=== PATIENT | female | born 1985 | race Caucasian/White ===

== ENCOUNTER 2019-06-17 13:12 | Emergency (ER) | payer MEDICAID, SELFPAY ==
[2019-06-17 13:13] VITALS: BP 154/106; PULSE 105; RESP 18; TEMP 36.8; O2SAT 100; BMI 27.1
[2019-06-17] MEDS: 0.9% Normal Saline 1,000 ML 1000 ML IV (13:13)
--- NOTE | 2019-06-17 13:29 | CT_ITS ---
STUDY: CT BRAIN WITHOUT CONTRAST REASON FOR EXAM: Female, 34 years old. Generalized weakness RADIATION DOSAGE (If Supplied By Facility): CTDIvol = ( 44.99 ) mGy, DLP = ( 812.98 ) mGycm TECHNIQUE: Transaxial CT imaging of the brain was performed without administration of intravenous contrast material. Individualized dose optimization techniques were used for this CT. COMPARISON: No relevant priors. FINDINGS: The bobo, medulla, and cerebellum appear to be normal. The ventricles and sulci are normal in size and shape. The basal ganglia appear to be normal. The inner and outer tables of the skull are intact. The frontal, ethmoid, maxillary, and sphenoid sinuses are normal. The mastoid air cells are normal. CT/Brain/Head without Contrast IMPRESSION: Normal unenhanced CT scan of the brain. Electronically Signed: Jhonathan Antony, at 14:48 EDT Tel , Service support ,
--- NOTE | 2019-06-17 13:29 | EKG12_ITS ---
Test Reason : WEAKNESS Blood Pressure : / mmHG Vent. Rate : 092 BPM Atrial Rate : 092 BPM P-R Int : 132 ms QRS Dur : 086 ms QT Int : 380 ms P-R-T Axes : 062 044 045 degrees QTc Int : 469 ms Normal sinus rhythm Possible Left atrial enlargement Nonspecific ST abnormality Abnormal ECG Confirmed by EVIE SANTANA, SARAH ([id number]), research editor SHANTA CHANG ([id number]) on 06/23/2019 9:35:19 AM Referred By: EVELIA Confirmed By:TROY CASE MD
--- NOTE | 2019-06-17 13:40 | NURSING ---
NO OLD EKGS
[2019-06-17 13:49] LABS: Absolute Lymphocyte Count 1.51 X10^3/uL (0.83-4.51); Absolute Neutrophil Count 6.6 X10^3/uL (2.0-7.7); Basophil# 0.02 X10^3/uL; Basophil% 0.2 % (0-1); Eosinophil# 0.05 X10^3/uL; Eosinophils% 0.6 % (0-5); Hematocrit 40.3 % (37-47); Hemoglobin 13.2 g/dL (12.0-15.0); Lymphocyte # 1.51 X10^3/ul (4.0); Lymphocyte % 17.7 % (19-41); Mean Corp Hgb Conc 32.8 g/dL (32-36); Mean Corpuscular Hgb 28.6 pg (27.0-32.0); Mean Corpuscular Volume 87.2 fL (81-99); Mean Platelet Vol. 10.4 fl (6.2-12.0); Monocyte# 0.38 X10^3/uL; Monocyte% 4.4 % (0-10); NRBC Flagged by Analyzer 0 % (0-5); Neutrophil # 6.56 X10^3/uL (2.7-7.7); Neutrophil % 76.7 % (47-70); Platelet Count 169 K/mm3 (150-450); RBC Distribution Width CV 13.8 % (11.6-14.6); RBC Distribution Width SD 43.1 fl (35.1-43.9); Red Blood Count 4.62 M/mm3 (4.2-5.4); White Blood Count 8.6 K/mm3 (4.4-11.0)
[2019-06-17 14:04] LABS: ALB/GLOB Ratio 1.2 RATIO (0.9-2.4); AST(SGOT) 18 U/L (15-37); Alanine Aminotransfer ALT/SGPT 21 U/L (13-56); Alkaline Phosphatase 62 U/L (45-117); Anion Gap 7 (5-15); BUN 14 mg/dL (7-18); BUN/Creat Ratio 23.5 RATIO (10-20); Calcium,Total 8.7 mg/dL (8.5-10.1); Chloride 105 mmol/L (98-107); EST Glomerular Filtration Rate 121 mL/min (>60); Est Glom Filt Rate - Afr Amer 146 mL/min (>60); Estimated Creatinine Clearance 93.11 ml/min; Globulin 3.2 g/dL (2.2-4.2); Glucose 108 mg/dL (74-106); Potassium 3.7 mmol/L (3.5-5.1); Protein, Total 7.2 g/dL (6.4-8.2); Sodium Level 137 mmol/L (136-145)
--- NOTE | 2019-06-17 14:28 | ED.VISSUMM ---
- ER Visit Summary Date of Service: 06/17/19 Chief Complaint: Weakness, near syncope History of Present Illness: The patient is a [address] Rig[address]. She reports that approximately noon today she been standing for 5 to 10 minutes when she began feeling warm, sweaty, and lightheaded. She did not pass out. This was not preceded by chest pain, abdominal pain, shortness of breath, or palpitations. She reports that she went back in her office and then had the onset of generalized weakness. She is unable to even open her eyes. Coworkers thought that it may be because her sugar was low they gave her crackers and soda this did not relieve her symptoms. Patient denies any complaints other generalized weakness. Physical Examination: Vitals: Stable. Afebrile. General: Well-nourished and well-developed. Head: Normocephalic atraumatic. Neck: Supple, no lymphadenopathy. No JVD. Nontender. Cardiovascular: Regular rate and rhythm. No murmurs. Respiratory: No respiratory distress. Clear to auscultation bilaterally. Abdominal: Soft, nontender, nondistended, normal bowel sounds. No guarding, rebound, or peritoneal signs. Back: Nontender. Extremities: Nontender, no edema. Skin: Normal color, no rash. Neurologic: Alert and oriented ?3. Normal sensation. I am unable to test the patient strength or facial nerves as she refuses to comply with the exam. She will not even attempt to open her eyes. When held open there is no tonic-clonic activity. She will not smile. She will not attempt to lift either upper or lower extremity. Psych: Normal affect. Test Results: EKG is sinus at [address] changes. There is no old EKG for comparison. CBC shows segmented neutrophils 77 lymphocytes of 18. Chem-7 shows a glucose of 108. LFTs are normal. test is negative. CT brain is normal. Emergency Department Course and Treatment: Patient was given a liter of normal saline. She had negative with static vital signs. On repeat exam she is alert and oriented x3. Cranials 2 through 12 are intact. She has 4-5 strength throughout. Normal sensation light touch throughout. Normal gait. Treatment Plan: Had a prolonged discussion with the patient and her family at this time I do not have an expiration for her symptoms. She is instructed to follow-up Dr. Riggs in 1 day for another exam. Return to the emergency department for any worsening symptoms. Disposition: To home in improved and stable condition. Impression: 1. Generalized weakness, uncertain cause. This note was generated with [employer] dictation software. It may contain incorrect words, spelling, and punctuation that were not noted in review of the chart prior to signing ED Disposition - Plan for ED Patient: Instructions: WEAKNESS, Unk Cause Referrals: Ramon Riggs MD [Primary Care Provider] - 1 Day for another exam
[2019-06-17 14:34] LABS: Internal QC Validated? YES +Cl - CLEAR BKGD; Pregnancy, Serum, hCG Quali. NEGATIVE Negative
[2019-06-17 14:40] VITALS: BP 137/98; BP 138/90; BP 144/108; PULSE 101; PULSE 95; PULSE 99
--- NOTE | 2019-06-17 14:43 | ED.RN ---
assisted patient in walking to restroom. Pt ambulates with steady gait to and from restroom. Pt denies any dizziness. Pt states my eyes are hard to control denies change in vision states her eyes are uncontrollable blinking
[2019-06-17 16:08] VITALS: BP 123/88; PULSE 93; RESP 18; O2SAT 98
== END 2019-06-17 16:10 | disposition home or self-care (01) ==
LOC: ED 13:36
PROVIDERS: Emergency Provider Emergency Medicine; Family Provider Family Medicine; PCP Family Medicine
DX: R53.1 Weakness (principal); F32.9 Major depressive disorder, single episode, unspecified; Z79.899 Other long term (current) drug therapy
CPT/HCPCS: 70450; 80053; 84703; 85025; 93005; 96360; 96361; 99285; J7030; A4216

== ENCOUNTER → 2021-08-22 16:55 | Outpatient (CLI) | payer MEDICAID, SELFPAY ==
[2021-08-29 16:35] LABS: HPV APTIMA, High Risk Negative (Negative)
== END ==
PROVIDERS: PCP Student in an Organized Health Care Education/Training Program; Visit Provider Obstetrics & Gynecology
DX: Z12.4 Encounter for screening for malignant neoplasm of cervix (principal)
CPT/HCPCS: 87624; 88175; G0145

== ENCOUNTER 2021-09-12 10:19 | Outpatient (CLI) | payer MEDICAID, SELFPAY | END 2021-09-12 23:59 | disposition short-term general hospital (02) | LOC: LABSPEC 10:21 | PROVIDERS: PCP Student in an Organized Health Care Education/Training Program; Visit Provider Obstetrics & Gynecology | DX: N76.0 Acute vaginitis (principal); R10.2 Pelvic and perineal pain | CPT/HCPCS: 87070; 87075; 87205 ==

== ENCOUNTER 2021-10-11 12:00 | Outpatient (CLI) | payer MEDICAID, SELFPAY ==
--- NOTE | 2021-10-11 | IMM_PTH ---
PATIENT: DIXIE CRUZ LOC: [facility] U#:[id number] AGE/SX: 36/F ROOM: RE10/11/[address]: Dr. Xiomara James DO : 1985 BED: DIS: 10/11/2021 SPEC #: [id number] RECD: 10/15/21 11:20 STATUS: GUILLERMINA REJim #: [id number] JUAN LUIS: 10/11/21 00:[address]: Xiomara James DEPT: IMMUNOHISTOCHEMISTRY RECD BY: Antonia Maya ENTERED: 10/15/21 11:21 SP TYPE: IMMUNO OTHR DR: Dr. Bernard Crouch, Tissues: B - Uterine cervix, NOS Procedures: p16 (initial) KI-67 (add) PHYSICIAN & INSTITUTION [place] [phone] SPECIMEN INFORMATION: Tissue Source: B ? Cervix at 1 o?clock Clinical Info: ASCUS, HPV negative Specimen Number: [id number] CPT code: 64848, 41593 METHODOLOGY: Deparaffinized sections of prefer/formalin-fixed tissue or PAP/DQ stained slides are incubated with monoclonal/polyclonal antibodies/oligonucleotide probes. Localization is made via biotin free immunoperoxidase method. Appropriate controls are performed and reacted as expected. Results on target cell population are indicated in the following table: RESULTS: ANTIBODY / CLONE RESULT Block B P16 (E6H4) positive, patchy Ki-67 (30-9) positive, low These tests were developed and their performance characteristics determined by [facility]. They may not have been cleared or approved by the U.S. Food and Drug Administration. The FDA has determined that such clearance or approval is not necessary. The above immunohistochemical/dualISH markers are ordered and reviewed by the Pathologist. INTERPRETATION: B. Cervix at 1 o?clock, biopsy: Consistent with HPV change. AM:fish 10/16/2021
--- NOTE | 2021-10-11 12:00 | ECC_PTH ---
PATIENT: DIXIE CRUZ LOC: [facility]#:[id number] AGE/SX: 36/F ROOM: RE10/11/[address]: Dr. Xiomara James DO : 1985 BED: DIS: 10/11/2021 SPEC #: [id number] RECD: 10/11/21 12:37 STATUS: GUILLERMINA TENZIN #: [id number] JUAN LUIS: 10/11/21 12:[address]: Xiomara James DEPT: SURGICAL PATHOLOGY RECD BY: Arminda Chaparro ENTERED: 10/12/21 09:53 SP TYPE: JAVIER BRUSH DR: Dr. Bernard Crouch DO Tissues: A - Endocervical B - Endocervical Procedures: Surgery Specimen Level IV HEADER OPERATION: Colposcopy PRE-OP DIAGNOSIS: ASCUS, HPV negative TISSUE SUBMITTED: Desirae HERRERA BShraddha At 1 o?clock MICROSCOPIC DIAGNOSIS A. Endocervix, curettings (cell block): Rare benign epithelial cells present. B. Cervix at 1 o?clock, biopsy: Consistent with HPV change. See comment. AM:fish 10/15/2021 COMMENT B. Results from immunohistochemistry ([id number]) for surrogate HPV marker (p16) will be reported separately. MICROSCOPIC DESCRIPTION Slides are reviewed. GROSS DESCRIPTION A. Received is one container labeled with the patient?s name and designated ECC. The specimen consists of a scant amount of soft tissue. The specimen is totally submitted for cell block preparation. B. Received is one container labeled with the patient?s name and designated cervix 1 o'clock. The specimen consists of one irregular fragment of light shoemaker soft tissue that measures 0.3 x 0.3 x 0.1 cm. The specimen is totally submitted in one cassette. / AM:newton 10/12/21 TC:3 CPT: 93998 x2
== END 2021-10-11 23:59 | disposition short-term general hospital (02) ==
LOC: LABSPEC 10-12 09:39
PROVIDERS: PCP Student in an Organized Health Care Education/Training Program; Visit Provider Obstetrics & Gynecology
DX: Z11.51 Encounter for screening for human papillomavirus (HPV) (principal)
CPT/HCPCS: 88305; 88341; 88342

== ENCOUNTER 2021-12-29 21:17 | Emergency (ER) | payer MEDICAID, SELFPAY ==
[2021-12-29 21:17] VITALS: BP 166/112; PULSE 110; RESP 16; TEMP 36.6; O2SAT 100; BMI 32.2
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
[2021-12-29] MEDS: predniSONE 20 MG Tablet 40 MG PO (23:53)
[2021-12-29 23:56] VITALS: RESP 18; O2SAT 99
== END 2021-12-29 23:56 | disposition home or self-care (01) ==
PROVIDERS: Emergency Provider Emergency Medicine; PCP Student in an Organized Health Care Education/Training Program; Visit Provider Emergency Medicine
DX: J02.9 Acute pharyngitis, unspecified (principal); S10.93XA Contusion of unspecified part of neck, initial encounter; Z79.899 Other long term (current) drug therapy; Y04.8XXA Assault by other bodily force, initial encounter
CPT/HCPCS: 70491; 99284; Q9967; A4216